=== PATIENT | female | born 1990 | race Caucasian/White ===

== ENCOUNTER 2020-11-16 09:41 | Inpatient (IN) | payer OTHER ==
[~2020-11-16] VITALS: Ht 170.2 cm; Wt 98.2 kg
[2020-11-16] MEDS ORDERED: CALCIUM CARBONATE 500 MG TAB.CHEW PO PRN ×2 (10:00→20:00)
[2020-11-16] MEDS ORDERED: TERBUTALINE 1 MG/ML, 1ML IVPush PRN (10:00)
[2020-11-16] MEDS ORDERED: OXYTOCIN 30U/ 0.9% NaCL 500ML 500 ML IV ONE (10:00)
[2020-11-16] MEDS ORDERED: TERBUTALINE 1 MG/ML, 1ML SQ PRN (10:00)
[2020-11-16] MEDS ORDERED: FENTANYL PF 100 MCG/2ML IV PRN (10:00)
[2020-11-16] MEDS ORDERED: D5%-LACTATED RINGERS 1,000 ML IV SCH (10:00)
[2020-11-16] MEDS ORDERED: LACTATED RINGERS 1,000 ML IV SCH (10:00)
[2020-11-16] MEDS ORDERED: OXYTOCIN 30U/ 0.9% NaCL 500ML 500 ML IV PRN (10:00)
[2020-11-16 10:22] LABS: BASOPHILS % (AUTO) 1 % (0-1); EOSINOPHILS % (AUTO) 1 % (1-7); LYMPHOCYTES % (AUTO) 19 % (22-44); MEAN CORPUSCULAR HEMOGLOBIN 30.5 pg (27.0-34.8); MEAN CORPUSCULAR HGB CONC 34.4 g/dL (32.4-35.8); MEAN PLATELET VOLUME 9.2 fL (7.4-10.4); MONOCYTES % (AUTO) 8 % (2-9); NEUTROPHILS % (AUTO) 72 % (42-75); PLATELET COUNT 167 x10^3/uL (130-400); RED BLOOD COUNT 4.17 x10^6/uL (3.82-5.3); RED CELL DISTRIBUTION WIDTH 13.8 % (9.6-15.2)
[2020-11-16] MEDS ORDERED: LIDOCAINE 1%, 20ML ONE ×2 (10:32→10:33)
[2020-11-16] MEDS ORDERED: MISOPROSTOL 200 MCG TABLET ONE (10:32)
[2020-11-16] MEDS ORDERED: NEWBORN KIT ONE (10:32)
[2020-11-16] MEDS ORDERED: ONDANSETRON 2MG/ML, 2ML ONE (16:45)
[2020-11-16] MEDS: FENTANYL PF 100 MCG/2ML IVPush PRN ×2 (16:51→17:54)
[2020-11-16] MEDS ORDERED: ONDANSETRON 2MG/ML, 2ML IVPush PRN (17:00)
[2020-11-16] MEDS ORDERED: METHYLERGONOVINE 0.2 MG/ML IM PRN ×2 (20:00)
[2020-11-16] MEDS ORDERED: OXYTOCIN 10 UNITS/ML, 1ML IM PRN (20:00)
[2020-11-16] MEDS ORDERED: MISOPROSTOL 200 MCG TABLET PR ONE (20:00)
[2020-11-16] MEDS ORDERED: DOCUSATE 100 MG CAPSULE PO PRN (20:00)
[2020-11-16] MEDS ORDERED: OXYcodone/APAP 5/325MG TABLET PO PRN (20:00)
[2020-11-16] MEDS ORDERED: ACETAMINOPHEN 325 MG TABLET PO PRN ×2 (20:00)
[2020-11-16] MEDS ORDERED: TRANEXAMIC ACID 100 MG/ML, 10ML IV ONE (20:00)
[2020-11-16] MEDS ORDERED: OXYcodone IR 5MG TABLET PO PRN (20:00)
[2020-11-16] MEDS ORDERED: SIMETHICONE 80 MG CHEW TAB PO PRN (20:00)
[2020-11-16] MEDS ORDERED: MAGNESIUM HYDROXIDE 8%, 30ML UDC PO PRN (20:00)
[2020-11-16] MEDS ORDERED: ONDANSETRON 2MG/ML, 2ML IV PRN (20:00)
[2020-11-16] MEDS ORDERED: CARBOPROST TROMETHAMINE 250 MCG/ML, 1ML IM PRN (20:00)
[2020-11-16] MEDS ORDERED: METHYLERGONOVINE 0.2 MG/ML IM ONE (20:14)
[2020-11-16] MEDS ORDERED: IBUPROFEN 600 MG TABLET ONE (20:21)
[2020-11-16] MEDS: IBUPROFEN 800 MG TABLET PO PRN (20:26)
[2020-11-16 22:00] VITALS: BP 116/77
[2020-11-16] MEDS: OXYTOCIN 30U/ 0.9% NaCL 500ML 500 ML IV SCH (22:58)
[2020-11-16] MEDS: LACTATED RINGERS 1,000 ML IV SCH (23:02)
[2020-11-16 23:47] VITALS: BP 119/80
[2020-11-17] MEDS ORDERED: LACTATED RINGERS 1,000 ML IVBOLUS ONE (01:30)
[2020-11-17 03:48] LABS: BASOPHILS % (AUTO) 0 % (0-1); EOSINOPHILS % (AUTO) 0 % (1-7); LYMPHOCYTES % (AUTO) 13 % (22-44); MEAN CORPUSCULAR HEMOGLOBIN 30.5 pg (27.0-34.8); MEAN CORPUSCULAR HGB CONC 33.9 g/dL (32.4-35.8); MEAN PLATELET VOLUME 9.2 fL (7.4-10.4); MONOCYTES % (AUTO) 6 % (2-9); NEUTROPHILS % (AUTO) 80 % (42-75); PLATELET COUNT 160 x10^3/uL (130-400); RED BLOOD COUNT 3.55 x10^6/uL (3.82-5.3); RED CELL DISTRIBUTION WIDTH 13.6 % (9.6-15.2)
[2020-11-17 03:58] VITALS: BP 105/69
[2020-11-17 07:53] VITALS: BP 104/66
[2020-11-17] MEDS: OXYTOCIN 30U/ 0.9% NaCL 500ML 500 ML IV SCH ×2 (09:00→20:23)
[2020-11-17] MEDS: LACTATED RINGERS 1,000 ML IV SCH ×2 (09:00→20:23)
[2020-11-17] MEDS ORDERED: PRENATAL VIT/IRON/FA 1 EACH TABLET PO SCH (09:00)
[2020-11-17 11:30] VITALS: BP 122/80
[2020-11-17] MEDS: IBUPROFEN 800 MG TABLET PO PRN (12:08)
[2020-11-17 15:35] VITALS: BP 114/74
[2020-11-17 19:45] VITALS: BP 103/71
== END 2020-11-17 20:30 | disposition home or self-care (01) | DRG 807 ==
LOC: LDIP 09:41 → 2NW 21:43
PROVIDERS: ADMIT Obstetrics & Gynecology; ATTEND Obstetrics & Gynecology
PROC: 10E0XZZ Delivery of Products of Conception, External Approach (ICD-10-PCS; principal; 2020-11-16)
PROC: 10907ZC Drainage of Amniotic Fluid, Therapeutic from Products of Conception, Via Natural or Artificial Opening (ICD-10-PCS; 2020-11-16)
DX: O80 Encounter for full-term uncomplicated delivery (principal); Z37.0 Single live birth; Z3A.39 39 weeks gestation of pregnancy; Z20.822 Contact with and (suspected) exposure to COVID-19
CPT/HCPCS: 36415; 85025; 86592; 86850; 86900; 87635; G0378; J2405; J3010; J2210; J2590; J7120